=== PATIENT | female | born 1995 | race Caucasian/White ===

== ENCOUNTER 2019-08-19 19:00 | Inpatient (IN) | payer OTHER ==
[~2019-08-19 19:00] MED LIST: Bupivacaine/Epinephrine 0.25% 30 ML VIAL ONE
[2019-08-19 21:00] VITALS: BMI 31.9
[2019-08-19] MEDS ORDERED: NS w/ Oxytocin 10 units 500 ML IV SCH (21:45)
[2019-08-19] MEDS ORDERED: Promethazine HCl 25 MG/ML VIAL IM PRN (21:45)
[2019-08-19] MEDS ORDERED: HYDROcodone/Acetaminophen 5/325 mg Tablet PO PRN ×2 (21:45)
[2019-08-19] MEDS ORDERED: hydrALAZINE 20 MG/ML VIAL SLOW IVP PRN (21:45)
[2019-08-19] MEDS ORDERED: Ibuprofen 800 MG TAB PO PRN (21:45)
[2019-08-19] MEDS ORDERED: Butorphanol Tartrate 1 MG/ML VIAL SLOW IVP PRN (21:45)
[2019-08-19] MEDS ORDERED: Lactated Ringer's 1,000 ML IV SCH (21:45)
[2019-08-19] MEDS ORDERED: NS / Oxytocin 40 units/1000ml 1,000 ML IV PRN (21:45)
[2019-08-19] MEDS ORDERED: Lidocaine 1% (PF) 30 ML VIAL SC PRN (21:45)
[2019-08-19] MEDS ORDERED: Ondansetron PF 4 MG/2 ML Vial IVP PRN (21:45)
[2019-08-19] MEDS ORDERED: Misoprostol 200 MCG TAB ONE (21:48)
[2019-08-19 22:00] LABS: Hemoglobin 11.1 g/dL (12.0-16.0); Mean Corpuscular HGB CONC 35.5 g/dL (32.0-36.0); Mean Corpuscular Volume 93.1 fL (78.0-98.0); Mean Platelet Volume 8.1 fL (7.4-10.4); Platelet Count 222 thou/uL (130-400); RBC Distribution Width 12.8 % (11.5-14.5); Red Blood Cell (RBC) Count 3.35 mill/uL (4.20-5.40); White Blood Cell (WBC) Count 9.2 thou/uL (4.8-10.8)
[2019-08-19] MEDS: Misoprostol 100 MCG TAB VAG SCH (22:09)
[2019-08-19] MEDS: Lactated Ringer's 1,000 ML IV SCH (22:40)
[2019-08-19 22:43] LABS: Syphilis Antibody Nonreactive (Nonreactive); Syphilis Antibody Index 0.04 S/CO (<1.00 Non-Reactive)
[2019-08-19 22:45] LABS: HBSAg Index 0.24 S/CO (0-0.99); Hep B Surf Ag Non-Reactive S/CO (NonReactive)
[2019-08-20] MEDS: Misoprostol 100 MCG TAB VAG SCH ×5 (01:36→17:04)
[2019-08-20] MEDS ORDERED: Fentanyl 4 mcg/Bup 0.1% Cadd 100 ML ONE ×2 (07:01→15:12)
[2019-08-20] MEDS: Lactated Ringer's 1,000 ML IV SCH ×2 (07:28→17:03)
[2019-08-20] MEDS ORDERED: Lactated Ringer's 500 ML IV PRN (08:06)
[2019-08-20] MEDS ORDERED: EPHEDRINE 25 MG/5 ML SYRINGE SLOW IVP PRN (08:06)
[2019-08-20] MEDS ORDERED: Acetaminophen 325 MG TAB PO PRN (08:06)
[2019-08-20] MEDS ORDERED: Naloxone HCl 0.4 mg/ml Vial IVP PRN ×2 (08:06)
[2019-08-20] MEDS ORDERED: Ondansetron PF 4 MG/2 ML Vial IVP PRN ×2 (08:06→17:11)
[2019-08-20] MEDS ORDERED: Promethazine HCl 25 MG/ML VIAL IM PRN ×2 (08:06→17:11)
[2019-08-20] MEDS ORDERED: diphenhydrAMINE 50 MG/ML VIAL IVP PRN (08:06)
[2019-08-20] MEDS ORDERED: Communication Order-Pharmacy FS SCH (08:15)
[2019-08-20] MEDS ORDERED: Fentanyl 4 mcg/Bupivacaine 0.1% Cassette 100 ML EPIDURAL SCH (08:15)
[2019-08-20] MEDS ORDERED: Methylergonovine 0.2 MG/ML VIAL ONE (14:19)
[2019-08-20] MEDS ORDERED: Misoprostol 200 MCG TAB ONE (14:20)
[2019-08-20] MEDS: NS / Oxytocin 40 units/1000ml 1,000 ML IV SCH ×2 (16:11→18:22)
[2019-08-20 17:03] LABS: Actual Bicarbonate (HCO3a) 23.8 mEq/L (22-28); Analyzer IN Cardio OR; Base Excess (BEa) -6.8 mEq/L (-2.0 to +3.0)
[2019-08-20 17:04] LABS: Actual Bicarbonate (HCO3v) 21 mEq/L (22-28); Analyzer IN Cardio OR; pH (Cord, venous) 7.31 (7.32-7.43)
[2019-08-20] MEDS ORDERED: Milk Of Magnesia 30 ML UDCUP PO PRN (17:11)
[2019-08-20] MEDS ORDERED: HYDROcodone/Acetaminophen 5/325 mg Tablet PO PRN ×2 (17:11)
[2019-08-20] MEDS ORDERED: Bisacodyl 10 MG SUPP PR PRN (17:11)
[2019-08-20] MEDS ORDERED: diphenhydrAMINE 25 MG CAP PO PRN (17:11)
[2019-08-20] MEDS ORDERED: Lanolin Ointment 7 GM TUBE TOP PRN (17:11)
[2019-08-20] MEDS ORDERED: Zolpidem Tartrate 5 MG TAB PO PRN (17:11)
[2019-08-20] MEDS ORDERED: hydrALAZINE 20 MG/ML VIAL SLOW IVP PRN (17:11)
[2019-08-20] MEDS ORDERED: Preparation H Ointment 28 GM TUBE PR PRN (17:11)
[2019-08-20] MEDS: Ibuprofen 800 MG TAB PO SCH (18:34)
[2019-08-20] MEDS: Docusate Calcium (SURFAK) 240 MG CAP PO SCH (20:53)
[2019-08-20] MEDS ORDERED: FLU VACC QS2019-20(6MOS UP)/PF 60 MCG/0.5 ML SYRINGE IM ONE (21:00)
[2019-08-21] MEDS: Ibuprofen 800 MG TAB PO SCH ×2 (06:28→14:52)
--- NOTE | 2019-08-21 07:16 | DN ---
DATE OF PROCEDURE: 08/20/2019 PREDELIVERY DIAGNOSIS: Severe variable decelerations and complete complete +3 to +4 station with suspected persistent right occiput posterior presentation. POSTDELIVERY DIAGNOSES: 1. Severe variable decelerations and complete complete +3 to +4 station with suspected persistent right occiput posterior presentation. 2. Confirmed persistent right occiput posterior. PROCEDURE: Vacuum outlet delivery with a second-degree midline laceration. ANESTHESIA: Epidural. FINDINGS: 1. Vigorous female infant, Apgars and weight pending delivered at 1611 hours to nursery. Cord gas pending. 2. Placenta delivered intact. 3. Second-degree midline laceration repaired with 2-0 chromic. DISPOSITION: Routine . DESCRIPTION OF PROCEDURE: I was called to present to Labor and Delivery unit approximately 1545 hours presented by such and found the patient to be a +3 to +4 station, unable to push past this rapidly with significant severe variable decelerations to the 40s to 60s in between contractions. After watching her push to several contractions convinced along with my exam, the infant was right occiput posterior. There seemed to be adequate room for delivery. However, decision was made to use vacuum to effect delivery was applied, taken to the yellow and then with contractions taken to the green. There were no pop-offs, it was applied over 2 contractions for approximately 5 pulls. The infant was delivered per persistently right occiput posterior. The rest of the delivered and placed on maternal abdomen. Cord was clamped and cut, and handed off to the team in attendance. Cord gas segment obtained. Cord blood sample obtained. Placenta was delivered spontaneously. Repair was with 2-0 chromic. Counts were correct. Job ID: [id number]
--- NOTE | 2019-08-21 08:15 | PDOC.PP ---
Post Progress Note Post Day #: 2 PO intake tolerated: yes Flatus: yes Ambulation: yes Vital Signs (12 hours) Temp Pulse Resp BP Pulse Ox 08/21/19 07:30 98 08/21/19 04:40 97.6 F 76 20 122/58 L 99 08/21/19 00:55 98.3 F 76 16 111/67 98 08/20/19 20:50 98.6 F 72 20 118/57 L 98 Weight Weight 198 lb Result Diagrams: 08/19/19 21:50 Additional Labs: Post Labs Blood Type O POSITIVE 08/19/19 22:22 Hep Bs Antigen Non-Reactive S/CO (NonReactive) 08/19/19 21:50 - Assessment/Plan Doing well post day 1.. D/c home... f/u [address] eugene.
[2019-08-21] MEDS ORDERED: Prenatal Vitamin 1 TAB PO SCH (09:00)
[2019-08-21] MEDS ORDERED: Adacel (T-DAP) 0.5 ML SYRINGE IM ONE (09:00)
[2019-08-21] MEDS: Ferrous Sulfate 325 MG TAB PO SCH ×2 (09:17→18:01)
[2019-08-21] MEDS: Docusate Calcium (SURFAK) 240 MG CAP PO SCH (09:45)
[2019-08-21 12:21] VITALS: TEMP 98.6
[2019-08-21 17:56] VITALS: BP 114/56
== END 2019-08-21 20:35 | disposition home or self-care (01) | DRG 807 ==
LOC: L&D 20:19 → 3SE 08-20 19:09
PROVIDERS: ADMIT Obstetrics & Gynecology; ATTEND Obstetrics & Gynecology
PROC: 10D07Z6 Extraction of Products of Conception, Vacuum, Via Natural or Artificial Opening (ICD-10-PCS; principal; 2019-08-20)
PROC: 0KQM0ZZ Repair Perineum Muscle, Open Approach (ICD-10-PCS; 2019-08-20)
DX: O76 Abnormality in fetal heart rate and rhythm complicating labor and delivery (principal); Z37.0 Single live birth; Z3A.39 39 weeks gestation of pregnancy; O70.1 Second degree perineal laceration during delivery
CPT/HCPCS: 36415; 51702; 82805; 85027; 86780; 86850; 86900; 86901; 87340; J2210; J2590